=== PATIENT | female | born 1945 | race Caucasian/White ===

== ENCOUNTER 2018-07-26 00:39 | Outpatient (CLI) | payer MEDICARE, BC, SELFPAY ==
--- NOTE | 2018-07-26 07:50 | DI.MAMMO_ITS ---
SYMPTOMS/DIAGNOSIS: SCREENING, Z12.31 MAMMOGRAM: Mammograms were interpreted according to the usual protocol including computer analysis with CAD system, tomosynthesis and C view imaging. The breasts are heterogeneously dense. No dominant mass or clumped microcalcifications is identified in either breast. The current examination is compared with previous examinations including June 2017 and there has been no gross interval change in appearance in comparison with the previous studies. CONCLUSION: No specific evidence of malignancy at this time. Routine screening examinations are suggested at yearly intervals due to the family history of breast carcinoma. Category I. Breast density C. MQSA ASSESSMENT OF FINDINGS: Negative. Category 1. Patient will receive a letter notifying them of these results. Bi-RADS category C. The breasts are heterogeneously dense, which may obscure small masses.
== END 2018-07-26 00:59 ==
PROVIDERS: PCP Family Medicine; Visit Provider Family Medicine
DX: Z12.31 Encounter for screening mammogram for malignant neoplasm of breast (principal); Z80.3 Family history of malignant neoplasm of breast
CPT/HCPCS: 77063; 77067

== ENCOUNTER 2019-07-07 11:57 | Outpatient (REF) | payer MEDICARE, BC, SELFPAY ==
[2019-07-07 13:09] LABS: ALT 33 U/L (14-59); AST 17 U/L (15-37); Albumin 4.5 g/dL (3.4-5.0); Alkaline Phosphatase 52 U/L (46-116); Anion Gap 10.1 mmol/L (3-11); BUN 21 mg/dL (7-18); Bilirubin, Total 0.6 mg/dL (0.2-1.0); CO2 26.9 mmol/L (21.0-32.0); CREATININE 0.81 mg/dL (0.55-1.02); Calcium 9.6 mg/dL (8.5-10.1); Calculated LDL 198 mg/dL; Chloride 106 mmol/L (98-107); Cholesterol 282 mg/dL (50-200); Glucose 52 mg/dL (70-100); HDL Cholesterol 69 mg/dL (40-60); Sodium 143 mmol/L (136-145); Total Protein 7.3 g/dL (6.4-8.2); Triglyceride 77 mg/dL (30-150); Vitamin B12 416 pg/mL (193-986)
[2019-07-07 13:29] LABS: Hemoglobin A1C 5.5 % (4.5-6.2)
[2019-07-08 09:35] LABS: Hepatitis C Ab w Rflx HCV PCR Negative (NEGAT)
[2019-07-08 13:03] LABS: Syphilis Serology (RPR) Negative (Negative)
== END 2019-07-07 12:17 ==
LOC: NCHCN 11:57
PROVIDERS: PCP Family Medicine; Visit Provider Family Medicine
DX: F03.90 Unspecified dementia, unspecified severity, without behavioral disturbance, psychotic disturbance, mood disturbance, and anxiety (principal); Z13.6 Encounter for screening for cardiovascular disorders; Z11.59 Encounter for screening for other viral diseases; Z11.3 Encounter for screening for infections with a predominantly sexual mode of transmission
CPT/HCPCS: 80053; 80061; 86803; 82607; 82746; 83036; 84439; 84443; 86592

== ENCOUNTER 2019-08-03 00:43 | Outpatient (CLI) | payer MEDICARE, BC, SELFPAY ==
--- NOTE | 2019-08-03 09:20 | DI.MRI_ITS ---
EXAM: MR BRAIN WO CLINICAL HISTORY: RAPID DECLINE IN MEMORY OVER LAST 4 YEARS, R41.3. TECHNIQUE: Multiplanar multisequence MRI was performed. COMPARISON: No exams were available for comparison FINDINGS: No intracranial hemorrhage, mass or acute infarct is seen. There is a mildly prominent cisterna. There is mild atrophy. There are no significant white matter changes. There is mild sinus disease. The mastoid air cells appear clear. Orbits are unremarkable. IMPRESSION: Mild atrophy.
--- NOTE | 2019-08-03 15:12 | DI.VRAD_ITS ---
PROCEDURE INFORMATION: Exam: MR Head Without Contrast Exam date and time: 08/03/2019 9:27 AM Clinical history: 74 years old, female; Altered mental status/memory loss; Patient HX: Rapid decline in memory over last 4 yrs. TECHNIQUE: Imaging protocol: MR of the head without contrast. COMPARISON: No relevant prior studies available. FINDINGS: Brain: Normal. No acute infarct. No hemorrhage. No significant white matter disease. No edema. Ventricles: Mild global atrophy. No abnormal extra-axial fluid collections are identified. No midline shift or herniation. Bones/joints: Unremarkable. Soft tissues: Unremarkable. Sinuses: Mild paranasal sinus disease. Retention cyst or polyp right maxillary sinus. Mastoid air cells: Normal as visualized. No mastoid effusion. Orbits: Unremarkable. IMPRESSION: No acute intracranial abnormality. Dictated and Authenticated by: Christopher Cuadra MD. Ordering:CATHERINE Hancock MD
== END 2019-08-03 01:03 ==
PROVIDERS: PCP Family Medicine; Visit Provider Family Medicine
DX: R41.3 Other amnesia (principal); G31.89 Other specified degenerative diseases of nervous system
CPT/HCPCS: 70551

== ENCOUNTER → 2019-08-08 10:26 | Outpatient (BNVA) | payer MEDICARE, BC, SELFPAY | PROVIDERS: PCP Family Medicine; Referring Provider Family Medicine; Visit Provider Nurse Practitioner Adult Health | DX: G31.84 Mild cognitive impairment of uncertain or unknown etiology (principal) | CPT/HCPCS: 99204; 99215 ==

== ENCOUNTER 2019-09-26 00:55 | Outpatient (CLI) | payer MEDICARE, BC, SELFPAY ==
--- NOTE | 2019-09-26 13:10 | DI.MAMMO_ITS ---
EXAM: MG MAMMO SCREENING CLINICAL HISTORY: SCREENING, Z12.31 TECHNIQUE: Bilateral full field digital CC and MLO mammographic images were obtained with 3D tomosyn thesis and utilizing computer aided detection (CAD). COMPARISON: Available for comparison. FINDINGS: Masses/Architectural Distortion: There are areas of asymmetric breast tissue in the medial and latera l aspects of the right breast seen on the craniocaudad view. These areas should be further evaluated with spot compression views. Ultrasound may be indicated at that time. Microcalcifications: No suspicious pleomorphic-type are seen. Skin Thickening/Nipple Retraction: None. IMPRESSION: 1. Additional views of the right breast as described above. 2. Ultrasound may be indicated at that time. BI-RADS Cat 0 - Assessment Incomplete: Need additional imaging evaluation Breast Density - Category C - Heterogeneously dense The mammogram demonstrates the patient's breast tissue is dense. Dense breast tissue is very common a nd is not abnormal but dense breast tissue can make it harder to find cancer on a mammogram. Also, de nse breast tissue may increase their breast cancer risk. This information [facility] was provided to the patient to raise their awareness. Use this report when you speak wi th the patient about their risks for breast cancer, which includes their family history. At that time , you may recommend for more screening tests (Ultrasound or MRI) as they might be useful based on the ir risk. A negative radiographic report should not delay biopsy if a dominant or clinically suspicious mass is present. Up to ten percent of cancers are not identified on mammography. A negative report may reinforce clinical impression. Adenosis and dense breasts may obscure an underlying neoplasm. False positive reports average 6 to 10%. Patient will receive a letter notifying them of these results.
== END 2019-09-26 01:15 ==
PROVIDERS: PCP Family Medicine; Visit Provider Family Medicine
DX: Z12.31 Encounter for screening mammogram for malignant neoplasm of breast (principal); R92.8 Other abnormal and inconclusive findings on diagnostic imaging of breast
CPT/HCPCS: 77063; 77067

== ENCOUNTER 2019-10-04 01:12 | Outpatient (CLI) | payer MEDICARE, BC, SELFPAY ==
--- NOTE | 2019-10-04 09:17 | DI.MAMMO_ITS ---
EXAM: MG MAMMO SCREEN CALL BACK UNI CLINICAL HISTORY: F/U ABNL MAMMO, ASYMMETRIC TISSUE, MEDIAL AND LATERAL ASPECTS ON CC VIEW,r92.8 TECHNIQUE: Additional images are interpreted according to the usual protocol including tomosynthesis and 2D imaging. COMPARISON: 2009 through 09/26/19. FINDINGS: CC spot compression views with tomography were performed of the medial and lateral aspects of the rig ht breast for questioned areas of asymmetric density. No persistent suspicious abnormality is seen. There is mild scarring related to prior breast biopsies. No mass or suspicious calcifications are s een. IMPRESSION: Yearly screening mammography is recommended. BI-RADS category 2, negative mammogram with benign find ings. BI-RADS Cat 2 - Benign Findings. Breast Density - Category C - Heterogeneously dense.
== END 2019-10-04 01:32 ==
PROVIDERS: PCP Family Medicine; Visit Provider Family Medicine
DX: Z12.31 Encounter for screening mammogram for malignant neoplasm of breast (principal); R92.8 Other abnormal and inconclusive findings on diagnostic imaging of breast; N64.59 Other signs and symptoms in breast; Z98.890 Other specified postprocedural states
CPT/HCPCS: 77063; 77067